=== PATIENT | female | born 1995 | race Caucasian/White ===

== ENCOUNTER 2022-10-08 08:00 | Outpatient (CLI) | payer MEDICAID ==
[2022-10-08 12:41] LABS: BASOPHILS # (AUTO) 0.1 10^3/uL (0.0-0.1); BASOPHILS % (AUTO) 0.6 %; EOSINOPHILS # (AUTO) 0.2 10^3/uL (0.0-0.7); EOSINOPHILS % (AUTO) 2.7 %; HCT - HEMATOCRIT 35.5 % (37.0-47.0); HGB - HEMOGLOBIN 11.8 g/dL (12.0-16.0); LYMPHOCYTES # (AUTO) 1.4 10^3/uL (1.5-3.5); LYMPHOCYTES % (AUTO) 15.8 %; MEAN CORPUSCULAR HEMOGLOBIN 29.5 pg (27.0-31.0); MEAN CORPUSCULAR HGB CONC 33.2 g/dL (32.0-36.0); MEAN CORPUSCULAR VOLUME 88.8 fL (81.0-99.0); MONOCYTES # (AUTO) 0.5 10^3/uL (0.0-1.0); MONOCYTES % (AUTO) 5.8 %; NEUTROPHILS # (AUTO) 6.4 10^3/uL (1.5-6.6); NEUTROPHILS % (AUTO) 74.7 %; PLT - PLATELET COUNT 299 10^3/uL (130-450); RED CELL DISTRIBUTION WIDTH 11.8 % (12.0-15.0); WHITE BLOOD COUNT 8.6 x10^3/uL (4.8-10.8)
[2022-10-09 06:09] LABS: HBsAG SCREEN Negative (Negative); HCV AB 0.1 s/co ratio (0.0-0.9)
[2022-10-09 08:08] LABS: RPR Non Reactive (Non Reactive); VARICELLA-ZOSTER AB IGG 1199 index (Immune >165)
[2022-10-11 01:06] LABS: HIV SCREEN 4TH GENERATION Non Reactive (Non Reactive)
== END 2022-10-08 23:59 | disposition home or self-care (01) ==
LOC: LAB.N 08:00
PROVIDERS: ATTEND Nurse Practitioner Obstetrics & Gynecology
DX: Z36.89 Encounter for other specified antenatal screening (principal)
CPT/HCPCS: 36415; 81220; 81329; 85025; 86592; 86762; 86787; 86803; 86850; 86900; 86901; 87340; 87389

== ENCOUNTER 2022-12-13 15:09 | Outpatient (CLI) | payer OTHER ==
--- NOTE | 2022-12-14 09:12 | Ultrasound Report ---
PROCEDURE: OB Detailed Eval INDICATIONS: SUPERVISION OF OUTSIDE/PRIOR DATING DATA: Last menstrual period (LMP): 07/22/2022. LMP-based estimated date of delivery (KEISHA): 04/28/2023. First dating scan (date and location): 10/05/2022. Estimated date of delivery (KEISHA) from first dating scan: 04/27/2023. The below data below was generated using the ultrasound KEISHA of 04/27/2023 TECHNIQUE: Real-time scanning was performed of the fetus, with image documentation and biometric measurements. Endovaginal scanning: Not performed COMPARISON: None. FINDINGS: General: A single living intrauterine gestation is present. Presentation: Vertex Placenta: Placental position is posterior, without previa. Amniotic fluid index: 11.8 cm, largest pocket is 3.3 cm, normal for gestational age. heart rate: 145 beats per minute. Maternal cervical canal: Closed and 5.9 cm long; normal length is 2.5 cm or more. biometrics: Biparietal diameter: 4.6 cm, 19 weeks, 5 days Head circumference: 17.2 cm, 19 weeks, 5 days Abdominal circumference: 15.2 cm, 20 weeks, 3 days Femur length: 3.3 cm, 20 weeks, 2 days Estimated gestational age from initial scan: 20 weeks, 5 days. Composite gestational age from present scan: 20 weeks, 0 days Estimated weight and percentile: 342 g, 23rd percentile Measurement variability in biometric dating: +/- 10 days from 12-20 weeks gestation, +/- 2 weeks from 20-30 weeks gestation, +/- 3 weeks at 30 weeks gestation or later. Anatomic survey: Neuro: Ventricles are normal at less than 10 mm. Cisterna magna is normal at 3-11 mm. Cerebellum i s normal in size and morphology. Nuchal skin fold: Normal at less than 6 mm between 14 and 20 weeks gestational age. Face: Nose and lips, facial profile are normal. Spine: No evidence for spina bifida. Heart: 4-chambered heart is present, with normal ventricular outflow tracts. Diaphragm: Diaphragm is intact. Stomach: Left-sided stomach is present. Kidneys: No hydronephrosis. Normal is less than 5 mm in 2nd trimester, less than 7 mm in 3rd trimester. Cord: 3 vessel cord has orthotopic insertion. Bladder: Normal in size. Extremities: All 4 extremities are visualized. IMPRESSION: 1. Single living intrauterine with estimated weight at the 23rd percentile. 2. Symmetric growth and normal anatomy. Reviewed by: Misti Best MD on 12/14/2022 9:11 AM PST Approved by: Misti Best MD on 12/14/2022 9:11 AM [facility] Station ID: [id number]
== END 2022-12-13 15:10 | disposition home or self-care (01) ==
LOC: DI 15:09
PROVIDERS: ATTEND Nurse Practitioner Obstetrics & Gynecology
DX: Z34.92 Encounter for supervision of normal pregnancy, unspecified, second trimester (principal); Z3A.20 20 weeks gestation of pregnancy; Z36.89 Encounter for other specified antenatal screening

== ENCOUNTER 2023-01-28 12:39 | Outpatient (CLI) | payer OTHER ==
[2023-01-28 17:50] LABS: HCT - HEMATOCRIT 35.9 % (37.0-47.0); HGB - HEMOGLOBIN 11.7 g/dL (12.0-16.0); MEAN CORPUSCULAR HEMOGLOBIN 28.9 pg (27.0-31.0); MEAN CORPUSCULAR HGB CONC 32.6 g/dL (32.0-36.0); MEAN CORPUSCULAR VOLUME 88.6 fL (81.0-99.0); RED BLOOD COUNT 4.05 10^6/uL (4.20-5.40); RED CELL DISTRIBUTION WIDTH 12.9 % (12.0-15.0); WHITE BLOOD COUNT 12.2 x10^3/uL (4.8-10.8)
== END 2023-01-28 12:40 | disposition home or self-care (01) ==
LOC: LAB.N 12:39
PROVIDERS: ATTEND Nurse Practitioner Obstetrics & Gynecology
DX: Z36.9 Encounter for antenatal screening, unspecified (principal)
CPT/HCPCS: 36415; 82950; 85027

== ENCOUNTER 2023-02-02 08:22 | Outpatient (CLI) | payer OTHER ==
[2023-02-02 09:29] LABS: GTT GLUCOSE,FASTING 83 mg/dL (70-100)
== END 2023-02-02 08:23 | disposition home or self-care (01) ==
LOC: LAB 08:22
PROVIDERS: ATTEND Nurse Practitioner Obstetrics & Gynecology
DX: O99.810 Abnormal glucose complicating pregnancy (principal)
CPT/HCPCS: 36415; 82951; 82952

== ENCOUNTER 2023-04-15 15:37 | Outpatient (CLI) | payer OTHER ==
--- NOTE | 2023-04-15 16:52 | Ultrasound Report ---
PROCEDURE: OB F/U or Repeat INDICATIONS: UTERINE SIZE DATE DISCREPENCY OUTSIDE/PRIOR DATING DATA: Last menstrual period (LMP): 07/22/2022. LMP-based estimated date of delivery (KEISHA): 04/28/2023. First dating scan (date and location): 10/05/2022. Estimated date of delivery (KEISHA) from first dating scan: 04/27/2023. TECHNIQUE: Real-time scanning was performed of the fetus, with image documentation and biometric measurements. Endovaginal scanning: Not performed COMPARISON: 12/13/2022 FINDINGS: General: A single living intrauterine gestation is present. Presentation: Vertex Placenta: Placental position is posterior, without previa. Amniotic fluid index: 19.1 cm, normal for gestational age. heart rate: 130 beats per minute. Maternal cervical canal: 3.6 cm long; normal length is 2.5 cm or more. biometrics: Biparietal diameter: 8.39 cm 33 weeks 5 days Head circumference: 29.8 cm 33 weeks 0 days Abdominal circumference: 30.6 cm 34 weeks 4 days Femur length: 6.67 m 34 weeks 1 day Estimated gestational age from initial scan: 38 weeks 2 days. Composite gestational age from present scan: 33 weeks 6 days Estimated weight and percentile: 2367 g, 1.3 percentile Measurement variability in biometric dating: +/- 10 days from 12-20 weeks gestation, +/- 2 weeks from 20-30 weeks gestation, +/- 3 weeks at 30 weeks gestation or more. Other: Umbilical artery S:D ratios 2.59-3.19, below the 95th percentile for gestational age. Antegra de diastolic flow maintained. IMPRESSION: 1. Single living intrauterine in vertex presentation. 2. Estimated weight at the 1.3 percentile, consistent with severe growth restriction. Results conveyed to Jessica Jackson by the heel slugger at 1600 hours. Reviewed by: Saul Nowak MD on 04/15/2023 4:51 PM PDT Approved by: Saul Nowak MD on 04/15/2023 4:51 PM PDT Station ID: [id number]
== END 2023-04-15 15:38 | disposition home or self-care (01) ==
LOC: DI 15:37
PROVIDERS: ATTEND Nurse Practitioner Obstetrics & Gynecology
DX: O26.843 Uterine size-date discrepancy, third trimester (principal); Z3A.33 33 weeks gestation of pregnancy

== ENCOUNTER 2023-04-16 10:05 | Inpatient (IN) | payer OTHER ==
[2023-04-16] MEDS ORDERED: OXYTOCIN 10 UNIT/ML VIAL IM PRN (10:15)
[2023-04-16] MEDS ORDERED: OXYTOCIN/SODIUM CHLORIDE 500 ML IV PRN (10:15)
[2023-04-16] MEDS ORDERED: miSOPROStoL 200 MCG TABLET BC PRN (10:15)
[2023-04-16] MEDS ORDERED: ONDANSETRON 4 MG/2 ML VIAL IVP PRN (10:15)
[2023-04-16] MEDS ORDERED: SODIUM CHLORIDE FLUSH 0.9% 10 ML SYRINGE IVP PRN (10:15)
[2023-04-16] MEDS ORDERED: lidocaine 1% 20 ML MDV ID PRN (10:15)
[2023-04-16] MEDS ORDERED: CARBOPROST TROMETHAMINE 250 MCG/ML AMP IM PRN (10:15)
[2023-04-16] MEDS ORDERED: TRANEXAMIC ACID IN NACL 1,000 MG/100 ML BAG IV PRN (10:15)
[2023-04-16] MEDS ORDERED: METHYLERGONOVINE 0.2 MG/ML VIAL IM PRN (10:15)
--- NOTE | 2023-04-16 10:38 | HISTORY & PHYSICAL EXAMINATION ---
Admit History - Visit Reason Visit Reason: Other - : 1 Parity: 0 Premature: 0 Ectopic: 0 : 0 Care: positive: [facility] Risk/History: positive: None Complications This : positive: Other Smoking Status: Never smoker - Mother's Labs Mother's Blood Type: positive: A Mother's RH: positive: Positive GBS: positive: Group B Strep Positive Rubella Status: positive: Immune Meds/Allgy - Allergies Allergies/Adverse Reactions: Allergies Allergy/AdvReac Type Severity Reaction Status Date / Time No Known Drug Allergies Allergy Verified 04/16/23 10:54 Review of Systems - Constitutional Constitutional: denies: Fatigue, Fever, Chills, Malaise - Eyes Eyes: denies: Blurred vision, Spots in vision, Dipolpia - Cardiovascular Cariovascular: denies: Irregular heart rate, Palpitations, Chest pain, Edema - Respiratory Respiratory: denies: Cough, Wheezing, SOB at rest - Gastrointestinal Gastrointestinal: denies: Abdominal pain, Constipation, Diarrhea, Change in bowel habits, Nausea, Vomiting - Genitourinary Genitourinary: denies: Dysuria - Integumentary Integumentary: denies: Rash, Pruritis - Neurological Neurological: denies: Headache - Psychiatric Psychiatric: denies: Depression, Anxiety Physical - Abdominal Exam Contraction Frequency (min/apart): none Uterine Resting Tone: positive: Soft - Monitoring Heart Rate Baseline: 130s Strip Review: positive: Category I - Presentation Presentation: positive: Vertex - Vaginal Exam Membranes: positive: Membranes intact Dilation (in cm): fingertip Effacement (%): 25 Station: positive: -3 Cervical Position: positive: Posterior - Speculum Exam Speculum Exam Performed: positive: No Findings: positive: Other Plan for Labor - Plan For Labor I expect patient to be DC'd or transferred within 96 hours.: Yes Plan for Labor: HPI: She is a patient of [facility] who presents on 04/16/2023 for medical induction of labor secondary to newly diagnosed IUGR. Upon arrival she was noted to be fingertip/25/-3, posterior and vertex with intact membranes. She denies vaginal bleeding, leakage of fluid or contractions and she reports +FM. She has been a patient of [facility] for the duration of her which has remained uncomplicated with the exception of newly diagnosed IUGR her growth ultrasound which was indicated for uterine size less than dates at her routine visit. EFW was constitutionally small measuring 1.3%tile with normal umbilical cord dopplers and normal DEENA. Pt is 5'1 with a pre- weight of 125lbs and her Renard is 5'4 of note. In addition, she had an elevated 1 hour GCT however her 3 hour glucose was WNL. She is noted to be GBS positive and will be treated prophylactically per protocol with Ampicillin. She will be admitted to [facility] for pre-induction cervical ripening with misoprostol. Dating criteria: LMP: 07/22/2023 Initial U/S @ 6.5wks c/w LMP dating Serial exams: agree cocktail server Hx: Term NSVB x 0. SAB x0. Last pap 11/27/2021 NEG, High risk HPV positive, HPV 16/18 negative Medical Hx: mild asthma, irritable bowel syndrome Surgical Hx: Appendectomy at age 8; wisdom teeth removal Family Hx: type 1 diabetes - sister; type 2 diabetes - father, PGF; thyroid disorder - mother; depression - maternal aunts; autoimmune hepatitis - mother; lymphoma-PGF Meds: PNV, PO iron supplement; omeprazole PRN, albuterol PRN Allergies: topical petroleum jelly - rash; dairy intolerance Social: , lives with Renard. Works at [employer]. Partner is [id number] and works at the base in [place]. No tobacco, ETOH or recreational drug use. Caffeine intake -none. course: A positive, antibody negative Rubella immune Initial U/S @ 6.5wks c/w LMP dating Genetic screening - negative; CF carrier negative; SMA negative COVID vaccine & booster x 4 Influenza vaccine received Tdap vaccine received 3rd trimester FAS WNL. Posterior placenta, no previa. 3VC. Size c/w dating (EFW 23%tile). DEENA WNL. 1 hour Glucose 147 - elevated 3 hour glucose WNL (83, 95, 123, 132) GBS POSITIVE Growth U/S @ 38wks 1.3%tile EFW. DEENA 19 cm(WNL); S:D ratios WNL Physical exam: Normocephalic, atraumatic Heart RRR w/o M/G/R Lungs CTAB Abdomen gravid, soft, nontender EFW 2400g FHR baseline 120s, moderate variability, + accels, no decels No contractions appreciated via tocometry SVE fingertip/25/-3, posterior. Vertex. Intact membranes. Bilateral LE's no edema Mood is good Assessment: 27yo @ 38.2wks gestation by LMP c/w 6.5wk U/S IUGR GBS positive FHR Category I Plan: Admit to [facility] for preinduction cervical ripening with 50mcg BC misoprostol q 4 hrs. Continuous monitoring. Initiate Ampicillin for GBS prophylaxis per protocol with onset of labor or SROM/AROM. Encouraged ambulation and position changes. Jacuzzi PRN. Nitrous oxide PRN. Epidural per maternal request. Anticipate .
[2023-04-16 11:16] LABS: BASOPHILS % (AUTO) 0.4 %; EOSINOPHILS # (AUTO) 0.1 10^3/uL (0.0-0.7); EOSINOPHILS % (AUTO) 0.5 %; HGB - HEMOGLOBIN 13.3 g/dL (12.0-16.0); LYMPHOCYTES # (AUTO) 1.4 10^3/uL (1.5-3.5); LYMPHOCYTES % (AUTO) 13.1 %; MEAN CORPUSCULAR HGB CONC 34.1 g/dL (32.0-36.0); MEAN CORPUSCULAR VOLUME 85.2 fL (81.0-99.0); MEAN PLATELET VOLUME 11.2 fL (7.9-10.8); MONOCYTES # (AUTO) 0.6 10^3/uL (0.0-1.0); MONOCYTES % (AUTO) 5.2 %; NEUTROPHILS # (AUTO) 8.5 10^3/uL (1.5-6.6); NEUTROPHILS % (AUTO) 80.1 %; PLT - PLATELET COUNT 242 10^3/uL (130-450); RED BLOOD COUNT 4.58 10^6/uL (4.20-5.40); RED CELL DISTRIBUTION WIDTH 13.5 % (12.0-15.0); WHITE BLOOD COUNT 10.6 x10^3/uL (4.8-10.8)
[2023-04-16] MEDS: miSOPROStoL 100 MCG TABLET BC SCH ×3 (11:19→20:19)
[2023-04-16] MEDS: SODIUM CHLORIDE FLUSH 0.9% 10 ML SYRINGE IVP SCH (15:44)
[2023-04-16] MEDS: metroNIDAZOLE 250 MG TABLET PO SCH (17:03)
[2023-04-16] MEDS: LACTATED RINGERS 1,000 ML IV SCH (23:01)
[2023-04-17] MEDS: LACTATED RINGERS 1,000 ML IV SCH ×2 (01:51→13:17)
[2023-04-17] MEDS ORDERED: AMPICILLIN 2 GM in SODIUM CHLORIDE 0.9% MINIBAG 100 ML IV SCH (06:00)
[2023-04-17] MEDS ORDERED: AMPICILLIN 1 GM in SODIUM CHLORIDE 0.9% MINIBAG 100 ML IV SCH (06:00)
[2023-04-17] MEDS: miSOPROStoL 100 MCG TABLET BC SCH (06:00)
[2023-04-17] MEDS: SODIUM CHLORIDE FLUSH 0.9% 10 ML SYRINGE IVP SCH (06:09)
[2023-04-17] MEDS ORDERED: ROPIVACAINE 0.2% 200 MG/100 ML BAG EP ONE (07:21)
[2023-04-17] MEDS ORDERED: ROPIVACAINE 0.2% 200 MG/100 ML BAG EP PRN (07:51)
[2023-04-17] MEDS ORDERED: NALOXONE 0.4 MG/ML VIAL IVP PRN ×4 (07:51→21:03)
[2023-04-17] MEDS ORDERED: ePHEDrine 50 MG/ML VIAL IVP PRN (07:51)
--- NOTE | 2023-04-17 07:51 | ANESTHESIA ---
Pre-Anesthesia VS, & Labs - Diagnosis induction of labor/ active labor - Procedure vaginal delivery Vital Signs: Temp Pulse Resp BP Pulse Ox O2 Flow Rate 36.8 C 92 16 122/86 H 04/16/23 11:48 04/16/23 11:48 04/16/23 11:48 04/16/23 11:48 Height: 5 ft 1 in Weight (kg): 63.957 kg Body Mass Index: 26.6 BMI Classification: Overweight - NPO Last Fluid Intake: clear liquids - Is Patient ?: Yes - Lab Results Current Lab Results: Laboratory Tests 04/16/23 11:46: Blood Type A POSITIVE, Antibody Screen NEGATIVE 04/16/23 11:00: WBC 10.6, RBC 4.58, Hgb 13.3, Hct 39.0, MCV 85.2, MCH 29.0, MCHC 34.1, RDW 13.5, Plt Count 242, MPV 11.2 H, Neut # (Auto) 8.5 H, Lymph # (Auto) 1.4 L, [place] # (Auto) 0.6, Eos # (Auto) 0.1, Baso # (Auto) 0.0, Absolute Nucleated RBC 0.00, Nucleated RBC % 0.0 Lab results reviewed: Yes Fish Bones: 04/16/23 11:00 Home Medications and Allergies Active Medications Carboprost Tromethamine (Carboprost Tromethamine 250 Mcg/Ml Amp) 250 mcg IM Q15M PRN PRN Reason: Step 4: Hemorrhage protocol Stop: 04/21/23 10:16 Oxytocin/Sodium Chloride (Pitocin/Sodium Chloride) 500 mls @ 999 mls/hr IV PRN PRN; Protocol PRN Reason: POST- HEMORR PREVENTION Stop: 04/21/23 10:16 Tranexamic Acid (Tranexamic 1,000 Mg/100ml-Nacl) 1,000 mg in 100 mls @ 600 mls/hr IV .ONCE PRN PRN Reason: EBL >1200mL and within 3hr Stop: 04/21/23 10:16 Lactated Ringer's (Lr) 1,000 mls @ 100 mls/hr IV .Q10H MARY Last Admin: 04/17/23 01:51 Dose: 100 mls/hr Ampicillin Sodium 2 gm/ Sodium (Chloride) 100 mls @ 100 mls/hr IV ONCE MARY Stop: 04/18/23 05:59 Last Admin: 04/17/23 06:15 Dose: 100 mls/hr Ampicillin Sodium 1 gm/ Sodium (Chloride) 100 mls @ 200 mls/hr IV Q4H [facility] Lidocaine HCl (Lidocaine 1% 20 Ml Mdv) 20 ml ID .ONCE PRN PRN Reason: PERINEAL REPAIR Stop: 04/21/23 10:16 Methylergonovine Maleate (Methylergonovine 0.2 Mg/Ml Vial) 0.2 mg IM .ONCE PRN PRN Reason: Step 2: Hemorrhage protocol Stop: 04/21/23 10:16 Metronidazole (Metronidazole 250 Mg Tablet) 500 mg PO BIDWM [facility] Last Admin: 04/16/23 17:03 Dose: 500 mg Misoprostol (Misoprostol 200 Mcg Tablet) 800 mcg BC .ONCE PRN PRN Reason: Step 3: Hemorrhage protocol Stop: 04/21/23 10:16 Ondansetron HCl (Ondansetron 4 Mg/2 Ml Vial) 4 mg IVP Q4HR PRN PRN Reason: Nausea / Vomiting Oxytocin (Oxytocin 10 Unit/Ml Vial) 10 unit IM .ONCE PRN PRN Reason: Step one: If no IV access Stop: 04/21/23 10:16 Sodium Chloride (Sodium Chloride Flush 0.9% 10 Ml Syringe) 10 ml IVP 0100,0900,1700 [facility] Last Admin: 04/17/23 06:09 Dose: Not Given Sodium Chloride (Sodium Chloride Flush 0.9% 10 Ml Syringe) 10 ml IVP PRN PRN PRN Reason: NEEDED PER PROVIDER ORDERS Allergies/Adverse Reactions: Allergies Allergy/AdvReac Type Severity Reaction Status Date / Time No Known Drug Allergies Allergy Verified 04/16/23 10:54 Anes History & Medical History - Anesthetic History Anesthesia Complications: reports: No previous complications - Medical History Cardiovascular: reports: None Pulmonary: reports: None Gastrointestinal: reports: None Urinary: reports: None Neuro: reports: None Musculoskeletal: reports: None Endocrine/Autoimmune: reports: None Blood Disorders: reports: None Skin: reports: None Smoking Status: Never smoker Psychosocial: reports: No issues indicated History of Cancer?: No - Surgical History General: reports: Appendectomy - Obstetrical History : 1 Parity: 0 Events: reports: None Complications: reports: Other (IUGR) Problems: IUGR Exam General: Alert, Oriented x3, Cooperative, No acute distress Dental: WNL Mouth Openin Fingerbreadth Neck Mobility: Normal Mallampati classification: II Thyromental Distance: 4-6 cm Mental/Cognitive Status: Alert/Oriented X3, Normal for patient Plan Anesthesia Type: Epidural Consent for Procedure(s) Verified and Reviewed: Yes Code Status: Attempt Resuscitation ASA classification: 2-Mild systemic disease Is this case an emergency?: No
[2023-04-17] MEDS: metroNIDAZOLE 250 MG TABLET PO SCH ×3 (08:19→22:17)
[2023-04-17] MEDS ORDERED: OXYTOCIN/SODIUM CHLORIDE 500 ML IV SCH (10:00)
--- NOTE | 2023-04-17 10:11 | PROVIDER PROGRESS NOTE ---
Labor Progress Note - Uterine Monitoring Uterine Monitoring Mode: positive: External toco Contraction Frequency (min/apart): 3-5 Contraction Intensity: positive: Moderate Uterine Resting Tone: positive: Soft - Monitoring Monitor Mode: positive: External ultrasound Heart Rate Baseline: 130 Heart Rate Variability: positive: Moderate (6-25 bmp) Accelerations: positive: Present, 15x15 Decelerations: positive: None Strip Review: positive: Category I - Vaginal Exam Dilation (in cm): 2-3 Effacement (%): 60 Station: -2 Cervical Position: Midposition - Labor Progress Note Labor Progress Note/Additional Text: S: Comfortable with her epidural. She was able to get a little rest last night after her epidural was placed. She continues to leak clear fluid. Her mood is good and both her mom and her are supportive at the bedside. O: FHR baseline 130s, moderate variability, + accels, no decels at present. She was previously having intermittent late decelerations with moderate variability maintained and overall FHR tracing looks reassuring. Contractions palpate mild every 2-5 minutes with soft resting tone SVE 2-3/60/-2, midposition, medium consistency. Vertex. A: 27yo @ 38.3wks gestation by LMP c/w 6.5wk U/S IUGR GBS positive FHR Category I P: Initiate pitocin for induction of labor with titration per protocol. Continuous monitoring. Continue ampicillin for GBS prophylaxis per protocol. Encouraged position changes in bed on peanut ball. Anticipate .
[2023-04-17] MEDS: AMPICILLIN 1 GM in SODIUM CHLORIDE 0.9% MINIBAG 100 ML IV SCH ×3 (10:33→18:13)
[2023-04-17] MEDS ORDERED: TERBUTALINE 1 MG/ML VIAL SUBQ ONE (16:35)
--- NOTE | 2023-04-17 16:43 | PROVIDER PROGRESS NOTE ---
Labor Progress Note - Uterine Monitoring Uterine Monitoring Mode: positive: IUPC Contraction Frequency (min/apart): 2-4 Contraction Intensity: positive: Moderate Uterine Resting Tone: positive: Soft - Monitoring Monitor Mode: positive: External ultrasound Heart Rate Baseline: 150 Heart Rate Variability: positive: Moderate (6-25 bmp) Accelerations: positive: Absent Decelerations: positive: Late, Intermittent (<50% x20 min) Strip Review: positive: Category II - Vaginal Exam Dilation (in cm): 4 Effacement (%): 70 Station: -2 Cervical Position: Midposition - Labor Progress Note Labor Progress Note/Additional Text: S: Feeling comfortable with her epidural in place. She has been able to get several naps in today and she feels She and her partner are both feeling comfortable with the plan of continued care and are aware of the potential for a delivery secondary to late decelerations. O: Pitocin currently off following recurrent, deep, late decelerations. Previously at 8mU/mL maximum infusion rate SVE 4/70/-2, midposition, medium consistency Contractions palpate moderate every 2-4 minutes with soft resting tone S/p 3 doses of ampicillin for gbs prophylaxis IUPC inserted A: 27yo @ 38.2wks gestation by LMP c/w 6.5wk U/S IUGR FHR Category II GBS positive P: Leave pitocin off x 30 minutes and then restart. Discussed with patient and partner at the bedside that if recurrent late decelerations develop that my recommendation would be to proceed with a delivery with the final decision being made by the x ray electronics wireman physician. They both verbalized understanding and are in agreement with the above plan. Continue ampicillin for GBS prophylaxis per protocol. Continuous monitoring. Continue rotation in bed on peanut ball. call center support consultant physician notified and will present to the unit secondary to concern for development of non-reassuring heart tones with re-initiation of pitocin.
[2023-04-17] MEDS ORDERED: ceFAZolin 2 GM in SODIUM CHLORIDE 0.9% MINIBAG 100 ML IV ONE (17:56)
--- NOTE | 2023-04-17 17:56 | CONSULTATION NOTE ---
Surgery Consult - Admit Date Hospital Admission Date: 04/16/23 - Consult Date Consult Date: 04/17/23 Requesting Provider: Jessica Jackson CNM - Chief Complaint Chief Complaint: non-reassuring heart tracing - Home Meds/Allergies Allergies/Adverse Reactions: Allergies Allergy/AdvReac Type Severity Reaction Status Date / Time No Known Drug Allergies Allergy Verified 04/16/23 10:54 - Vital Signs Vital Signs: Last Vital Signs Temp 98.2 F 04/16/23 11:48 Pulse 92 04/16/23 11:48 Resp 16 04/16/23 11:48 BP 122/86 H 04/16/23 11:48 Pulse Ox O2 Flow Rate Intake & Output: Intake & Output 04/14/23 04/15/23 04/16/23 04/17/23 23:59 23:59 23:59 23:59 Intake Total 1448.500 Output Total 1400 Balance 48.500 - Lab Results Result Diagrams: 04/16/23 11:00 - Consultation Note Consultation Note: 27 at 38 + 2 by LMP confirmed by first tri u/s admitted 16 April for induction of labor for IUGR. Patient under misoprostol cervical ripening x 24 hours, SROM 0530 today, clear fluid, who has made minimal cervical dilation with intermittent episodes of recurrent late decelerations. With non-reassuring status remote from delivery I was consulted to assess the patient for delivery. Verbal and written informated consent obtained. Risk, pros, cons and alteratives reviewed. Patient and agree and desire to proceed with primary delivery as recommended.
--- NOTE | 2023-04-17 18:02 | OPERATIVE REPORT ---
Operative Report - General Admit Date: 04/16/23 Planned Procedure: Primary low transverse delivery Pre-Op Diagnosis: intolerance to labor remote from delivery Procedure Performed: Primary low transverse delivery Post Op Diagnosis: at 38+2 weeks gestation; intrauterine growth restriction - Procedure Note Primary Surgeon: Johanny Moreland MD Secondary Surgeon: Jessica Jackson CNM Anesthesia Provider: See nursing record Anesthesia Technique: Epidural Pathology: Placenta delivered intact Estimated Blood Loss (mL): 800 Urine Output (mL): 200 ([place]) Indications: Due to her intolerance to labor remote from delivery Findings: Vertex presentation; well-developed lower uterine segment; normal-appearing tubes and ovaries bilaterally Complications: None - Other Other Information/Narrative: Procedure in detail: Patient was taken to the operating room where an adequate epidural was already in place. She was sterilely prepped and draped in the supine position with a leftward tilt. A Pfannenstiel incision was made and carried down to the underlying layer of fascia. The fascia was divided and dissected sharply and laterally. Electrocautery was used for hemostasis. The rectus muscles were carefully divided and the peritoneum was entered sharply. The lower uterine segment was assessed and well developed. A low transverse incision was created and extended laterally with bandage scissors. The fetus was delivered in a vertex presentation. The head was delivered without difficulty the cord was clamped and the infant was handed off the field with the awaiting chief nurse executive was present. The uterus was then exteriorized and cleansed with a dry lap sponge. The uterine incision was then repaired using 0 Vicryl in a running locking fashion. A second layer imbrication was created with the 0 Vicryl as well. Good homeostasis was noted. The bladder was intact. The uterus was placed back into the abdomen after copious irrigation of the abdomen was performed with warm saline fluid. The uterine incision was reinspected and noted to be hemostatic. The abdominal incision was then repaired in layers in the usual fashion. 0 Vicryl was used for the fascia. Interrupted 2-0 Vicryl was used to reapproximate the the fatty layer and Briana's fascia. The skin was then re-approximated with 3-0 Monocryl. Steri- Strips were applied and a pressure dressing placed. The Mayorga was noted to be draining clear yellow urine and a crede was performed expressing minimal blood. Instrument sponge and needle count was correct x2 and the patient was taken to the recovery room in a stable condition.
--- NOTE | 2023-04-17 18:02 | DELIVERY NOTE ---
Delivery Note - Labor Labor: positive: Other - Delivery Method Delivery Method: positive: Primary - Cervical Ripening Method Cervical Ripening Method: positive: Misoprostil, Oxytocin - Presentation Presentation: positive: Vertex - Anesthetic Anesthetic: positive: Other (see anesthetic record) - Amniotic Fluid Description Amniotic Fluid Description: positive: Other ( terminal meconium) - Suture Suture Type: positive: Vicryl - Delivery Outcome Delivery Outcome: positive: Livebirth - : positive: Warmer used [place] sex: positive: Female - Estimated Blood Loss Estimated Blood Loss (in cc): 800 - Delivery Comments (Free Text/Narrative) Delivery Comments (Free Text/Narrative): uncomplicated primary low transverse delivery
[2023-04-17] MEDS ORDERED: METHYLERGONOVINE 0.2 MG/ML VIAL ONE (18:09)
[2023-04-17] MEDS ORDERED: CARBOPROST TROMETHAMINE 250 MCG/ML AMP IM ONE (18:09)
[2023-04-17] MEDS ORDERED: miSOPROStoL 200 MCG TABLET ONE (18:09)
[2023-04-17] MEDS ORDERED: LIDOCAINE MPF 2%-EPI 1:200000 20 ML VIAL ONE (18:12)
[2023-04-17] MEDS ORDERED: ceFAZolin 2 GM VIAL ONE (18:21)
[2023-04-17] MEDS ORDERED: fentaNYL 100 MCG/2 ML VIAL ONE (19:04)
[2023-04-17] MEDS ORDERED: KETOROLAC 30 MG/ML VIAL ONE (19:29)
[2023-04-17] MEDS ORDERED: LACTATED RINGERS 900 ML IV ONE (19:47)
[2023-04-17] MEDS ORDERED: ONDANSETRON 4 MG/2 ML VIAL IVP PRN ×2 (19:57→20:06)
[2023-04-17] MEDS ORDERED: fentaNYL 100 MCG/2 ML VIAL IVP PRN (19:57)
[2023-04-17] MEDS ORDERED: ATROPINE ABBOJECT 1 MG/10 ML SYRINGE IVP PRN (19:57)
[2023-04-17] MEDS ORDERED: MORPHINE 2 MG/ML CARPUJECT IVP PRN (19:57)
[2023-04-17] MEDS ORDERED: HYDROmorphone 0.5 MG/0.5 ML SYRINGE IVP PRN (19:57)
[2023-04-17] MEDS ORDERED: LACTATED RINGERS 1,000 ML IV SCH (20:00)
[2023-04-17] MEDS ORDERED: diphenhydrAMINE 25 MG CAPSULE PO PRN (20:06)
[2023-04-17] MEDS ORDERED: ONDANSETRON ODT 4 MG TABLET TL PRN (20:06)
[2023-04-17] MEDS ORDERED: CALCIUM CARBONATE CHEW 500 MG TABLET PO PRN (20:06)
[2023-04-17] MEDS ORDERED: OXYTOCIN/SODIUM CHLORIDE 500 ML IV PRN ×2 (20:06→21:03)
[2023-04-17] MEDS ORDERED: METOCLOPRAMIDE 10 MG TABLET PO PRN (20:06)
[2023-04-17] MEDS ORDERED: hydrALAZINE INJ 20 MG/ML VIAL IVP PRN ×4 (20:06→21:03)
[2023-04-17] MEDS ORDERED: LABETALOL 20 MG/4 ML SYRINGE IVP PRN ×6 (20:06→21:03)
[2023-04-17] MEDS ORDERED: NIFEdipine 10 MG CAPSULE PO PRN ×2 (20:06→21:03)
[2023-04-17] MEDS: HYDROmorphone 0.5 MG/0.5 ML SYRINGE IVP ONE ×2 (21:00→21:03)
[2023-04-17] MEDS ORDERED: oxyCODONE 5 MG TABLET PO PRN (21:03)
[2023-04-17] MEDS ORDERED: ACETAMINOPHEN 650 MG SUPP PR PRN (21:19)
[2023-04-17] MEDS: HYDROmorphone 1 MG/ML CARPUJECT IVP PRN (21:29)
[2023-04-17] MEDS ORDERED: ACETAMINOPHEN 500 MG TABLET PO SCH (22:00)
[2023-04-17] MEDS: DOCUSATE SODIUM 100 MG CAPSULE PO SCH (22:39)
[2023-04-18] MEDS ORDERED: KETOROLAC 30 MG/ML VIAL IVP SCH
[2023-04-18] MEDS: ACETAMINOPHEN 500 MG TABLET PO SCH ×4 (00:18→23:51)
[2023-04-18] MEDS: HYDROmorphone 1 MG/ML CARPUJECT IVP PRN (00:18)
[2023-04-18] MEDS: KETOROLAC 30 MG/ML VIAL IVP SCH ×3 (01:50→13:57)
[2023-04-18] MEDS: oxyCODONE 5 MG TABLET PO PRN ×6 (03:35→23:51)
[2023-04-18 06:12] LABS: HCT - HEMATOCRIT 33.2 % (37.0-47.0); HGB - HEMOGLOBIN 11.3 g/dL (12.0-16.0); MEAN CORPUSCULAR HEMOGLOBIN 29.7 pg (27.0-31.0); MEAN CORPUSCULAR VOLUME 87.1 fL (81.0-99.0); MEAN PLATELET VOLUME 10.5 fL (7.9-10.8); RED BLOOD COUNT 3.81 10^6/uL (4.20-5.40); RED CELL DISTRIBUTION WIDTH 13.5 % (12.0-15.0); WHITE BLOOD COUNT 14.2 x10^3/uL (4.8-10.8)
--- NOTE | 2023-04-18 06:25 | PROVIDER PROGRESS NOTE ---
Subjective - Prog Note Date Prog Note Date: 04/17/23 (patient feeling well this am; has ambulated; tolerating po; pain well controlled) Prog Note Time: 06:30 - Subjective Pt reports feeling: Improved Objective - Vital Signs/Intake & Output Vital Signs: Vital Signs x48h Temp Pulse Resp BP Pulse Ox 04/18/23 03:32 98.0 F 74 16 122/83 H 98 04/18/23 02:00 97.9 F 04/18/23 00:35 98.4 F 90 18 134/80 H 99 04/17/23 22:31 97.9 F 70 16 122/81 H 99 Intake & Output: Intake & Output 04/15/23 04/16/23 04/17/23 04/18/23 23:59 23:59 23:59 23:59 Intake Total 2296.417 Output Total 1515 Balance 781.417 - Objective General Appearance: positive: No acute distress Respiratory: positive: No respiratory distress Abdomen: positive: No distention, Other (fundus firm; bandage in place; dry) Extremities: positive: Non-tender - Lab Results Fish Bones: 04/18/23 06:03 Other Labs: Lab Results x24hrs 04/18/23 Range/Units 06:03 WBC 14.2 H (4.8-10.8) x10^3/uL RBC 3.81 L (4.20-5.40) 10^6/uL Hgb 11.3 L (12.0-16.0) g/dL Hct 33.2 L (37.0-47.0) % MCV 87.1 (81.0-99.0) fL MCH 29.7 (27.0-31.0) pg MCHC 34.0 (32.0-36.0) g/dL RDW 13.5 (12.0-15.0) % Plt Count 181 (130-450) 10^3/uL MPV 10.5 (7.9-10.8) fL Assessment/Plan - Problem List (1) delivery delivered Impression: POD #1 (4) Non-reassuring heart rate with late deceleration Impression: Doing well POD #1 primary cd for intolerance to labor last PM Advance care today Routine post c/s care
[2023-04-18] MEDS: DOCUSATE SODIUM 100 MG CAPSULE PO SCH ×2 (08:04→20:00)
[2023-04-18] MEDS: metroNIDAZOLE 250 MG TABLET PO SCH ×2 (08:04→18:14)
[2023-04-18] MEDS: SODIUM CHLORIDE FLUSH 0.9% 10 ML SYRINGE IVP SCH (08:29)
[2023-04-18] MEDS ORDERED: DOCUSATE SODIUM 100 MG CAPSULE PO SCH (09:00)
--- NOTE | 2023-04-18 10:06 | PROVIDER PROGRESS NOTE ---
Subjective - Subjective Subjective: Reviewed with patient my recommendation for proceeding with primary delivery secondary to non-reassuring heart tones isolated with delivery. Care handed to document control supervisor physician. Objective - Vital Signs/Intake & Output Vital Signs: Vital Signs x48h Temp Pulse Resp BP Pulse Ox 04/18/23 08:25 36.7 C 77 18 129/90 H 04/18/23 03:32 36.7 C 74 16 122/83 H 98 Intake & Output: Intake & Output 04/15/23 04/16/23 04/17/23 04/18/23 23:59 23:59 23:59 23:59 Intake Total 2296.417 450 Output Total 1515 330 Balance 781.417 120 - Lab Results Fish Bones: 04/18/23 06:03 Other Labs: Lab Results x24hrs 04/18/23 Range/Units 06:03 WBC 14.2 H (4.8-10.8) x10^3/uL RBC 3.81 L (4.20-5.40) 10^6/uL Hgb 11.3 L (12.0-16.0) g/dL Hct 33.2 L (37.0-47.0) % MCV 87.1 (81.0-99.0) fL MCH 29.7 (27.0-31.0) pg MCHC 34.0 (32.0-36.0) g/dL RDW 13.5 (12.0-15.0) % Plt Count 181 (130-450) 10^3/uL MPV 10.5 (7.9-10.8) fL
[2023-04-18] MEDS: IBUPROFEN 600 MG TABLET PO SCH (20:00)
[2023-04-18] MEDS: SIMETHICONE CHEW 80 MG TABLET PO PRN (23:51)
[2023-04-19] MEDS: oxyCODONE 5 MG TABLET PO PRN ×4 (03:40→21:59)
[2023-04-19] MEDS: IBUPROFEN 600 MG TABLET PO SCH ×3 (03:40→18:35)
[2023-04-19] MEDS: metroNIDAZOLE 250 MG TABLET PO SCH ×2 (09:18→18:35)
[2023-04-19] MEDS: DOCUSATE SODIUM 100 MG CAPSULE PO SCH ×2 (09:19→21:59)
[2023-04-19] MEDS: ACETAMINOPHEN 500 MG TABLET PO SCH ×2 (09:19→18:35)
--- NOTE | 2023-04-19 13:31 | PROVIDER PROGRESS NOTE ---
Subjective - Prog Note Date Prog Note Date: 04/19/23 Prog Note Time: 13:00 - Subjective Pt reports feeling: Improved Subjective: Comfortable, pain controlled with oxycodone prn. Appropriate lochia. Ambulating. Voiding. Passing flatus. Tolerating regular diet. Working on . Mood is ok. Objective - Vital Signs/Intake & Output Vital Signs: Vital Signs x48h Temp Pulse Resp BP 04/19/23 09:45 98.6 F 87 16 137/79 H Intake & Output: Intake & Output 04/16/23 04/17/23 04/18/23 04/19/23 23:59 23:59 23:59 23:59 Intake Total 2296.417 450 Output Total 1515 1330 Balance 781.417 -880 - Objective General Appearance: positive: No acute distress Eyes Bilateral: positive: EOMI Respiratory: positive: No respiratory distress Abdomen: positive: Other (FF, dressing removed and incision c/d/i with steri strips) Skin: positive: Color nml Extremities: positive: Non-tender Neurologic/Psychiatric: positive: Oriented x3 - Lab Results Fish Bones: 04/18/23 06:03 Assessment/Plan - Problem List (1) delivery delivered Impression: 27yo s/p PCD following IOL for IUGR on 04/17/23, POD#2 - Doing well - Continue care - Continue assistance with , continues to require admission - Anticipate discharge tomorrow
--- NOTE | 2023-04-19 17:39 | ANESTHESIA POST OP EVALUATION ---
Anesthesia Post Eval - Post Anesthesia Eval Vitals: Last Vital Signs Temp 37.1 C 04/19/23 13:40 Pulse 87 04/19/23 13:40 Resp 18 04/19/23 13:40 BP 129/82 H 04/19/23 13:40 Pulse Ox 98 04/19/23 04:28 O2 Flow Rate CV Function Including HR & BP: Stable Pain Control: Satisfactory Nausea & Vomiting: Negative Mental Status: Baseline Respiratory Status: Airway Patent Hydration Status: Satisfactory Anesthesia Complications: None
[2023-04-19] MEDS: SIMETHICONE CHEW 80 MG TABLET PO PRN (21:55)
[2023-04-20] MEDS: IBUPROFEN 600 MG TABLET PO SCH ×3 (00:27→18:46)
[2023-04-20] MEDS: ACETAMINOPHEN 500 MG TABLET PO SCH ×2 (02:24→12:38)
[2023-04-20] MEDS: oxyCODONE 5 MG TABLET PO PRN ×4 (02:24→18:46)
[2023-04-20 07:28] VITALS: BP 129/87
[2023-04-20] MEDS ORDERED: LIDOCAINE PATCH 5% TOP PRN (08:44)
--- NOTE | 2023-04-20 09:06 | PROVIDER PROGRESS NOTE ---
Subjective - Prog Note Date Prog Note Date: 04/20/23 Prog Note Time: 09:04 - Subjective Subjective: Patient is POD#3 s/p 1LTCS for NRFHT with complicated by growth restriction. Patient is doing well this morning. Ambulating, tolerating regular diet. Some left sided incisional pain. Spontaneously voiding, passing flatus. Objective - Vital Signs/Intake & Output Reviewed Vital Signs: Yes Vital Signs: Vital Signs x48h Temp Pulse Resp BP 04/20/23 07:25 98.4 F 83 16 129/87 H Intake & Output: Intake & Output 04/17/23 04/18/23 04/19/23 04/20/23 23:59 23:59 23:59 23:59 Intake Total 2296.417 450 Output Total 1515 1330 Balance 781.417 -880 - Objective General Appearance: positive: No acute distress Respiratory: positive: Breath sounds nml Cardiovascular: positive: Regular rate & rhythm Abdomen: positive: Non-tender (appropriately tender, incision closed with sutures and steri strips- clean/dry/intact) Extremities: positive: No pedal edema - Lab Results Fish Bones: 04/18/23 06:03 Assessment/Plan - Problem List (1) delivery delivered Impression: POD#3 discharge to home today reviewed no heavy lifting no driving while taking pain medications
--- NOTE | 2023-04-20 09:23 | DISCHARGE SUMMARY ---
Discharge Summary Discharge Date: 04/20/23 Discharging Provider: Lori Primary Care Provider: Manuel Code Status: Attempt Resuscitation Discharge Disposition: 01 Home, Self Care - DIAGNOSES Admission Diagnoses: growth restriction Discharge Diagnoses with Status of Each Condition: growth restriction - HPI History of Present Illness: Patient presented for induction of labor secondary to growth restriction. Patient had a primary section secondary to non-reassuring heart rate tracing. She had an uncomplicated postoperative course and was discharged to home on POD#3. - ALLERGIES Allergies/Adverse Reactions: Allergies Allergy/AdvReac Type Severity Reaction Status Date / Time No Known Drug Allergies Allergy Verified 04/16/23 10:54 - MEDICATIONS Home Medications: Ambulatory Orders Medication Instructions Recorded Confirmed Docusate Sodium 100Mg Capsule 100 mg PO DAILY PRN #60 cap 04/20/23 [Colace 100Mg Capsule] oxyCODONE [Roxicodone] 2.5 - 5 mg PO Q4H PRN #24 tablet 04/20/23 oxyCODONE [Roxicodone] 5 mg PO Q4HR PRN 10 Days #21 tablet 04/20/23 - PHYSICAL EXAM AT DISCHARGE General Appearance: positive: No acute distress Respiratory: positive: Breath sounds nml Cardiovascular: positive: Regular rate & rhythm Abdomen: positive: Non-tender (appropriately tender, incision is clean/dry/intact) Extremities: positive: No pedal edema Neurologic/Psychiatric: positive: Oriented x3 - LABS Result Diagrams: 04/18/23 06:03
[2023-04-20] MEDS: DOCUSATE SODIUM 100 MG CAPSULE PO SCH (09:25)
--- NOTE | 2023-04-20 19:13 | Labor Flowsheet ---
Labor Flowsheet Datetime Report Generated by CPN: 04/20/2023 19:13 Datetime: 04/19/2023 04:29 Pulse: 90 SpO2 (%): 95 LaborFlag: Labor Datetime: 04/19/2023 04:28 VITAL SIGNS NBP Sys/Julia/Mean (mmHg): 118 : 78 : 87 Datetime: 04/17/2023 18:25 Communication Comments: Patient transported to OR via gurney Datetime: 04/17/2023 18:19 UTERINE ACTIVITY Monitor Mode: Internal Frequency (min): 3-5 Duration (sec): 60-190 Resting Tone IUP (mmHg): 0 Intensity IUP (mmHg): 30-60 [place] Units (mmHg): 155 ASSESSMENT A Monitor Mode: External US FHR Baseline Rate : 155 Variability: Minimal - Undetectable to <=5 bpm Accelerations: None Decelerations: Late Category: Category II Datetime: 04/17/2023 18:14 Anesthesia Comments: A. Juana NITRATOR OPERATOR at bedside Datetime: 04/17/2023 18:13 Antibiotics: Ampicillin IV 1 Gm Datetime: 04/17/2023 18:00 Pattern: Normal: <= 5 Contractions in 10 Minutes Datetime: 04/17/2023 17:53 Patient Care Comments: theraworx wipes to abdomen, groin Datetime: 04/17/2023 17:35 Provider Reviewed Strip: Yes COMMUNICATION Communication: Provider at Bedside Datetime: 04/17/2023 17:30 Actions for Decelerations: Pitocin Off Comments: OR team called in for urgent CS Datetime: 04/17/2023 17:29 MEDICATIONS Pitocin (milliunits): Discontinued Datetime: 04/17/2023 17:15 Pitocin Checklist: At Least 1 Acceleration of 15 bpm x 15 Seconds in 30 Minutes or Adequate Variabi lity; No More than 1 Late Deceleration Occurred in Past 30 Minutes; No More than 2 Variable Decelerat ions > 60 Seconds in Duration and decreasing >60 bpm in 30 minutes; No More than 5 Uterine Contractio ns in 10 Minutes for any 20 Minute Interval; IUPC Resting Tone less than 25 mmHg Datetime: 04/17/2023 17:07 Medication Comments: Per BECCA Nayak. Provider on unit. Datetime: 04/17/2023 17:00 Quality: Strong Resting Tone (Palpate): Relaxed Datetime: 04/17/2023 16:27 Patient Position/Activity: Right Extreme Datetime: 04/17/2023 16:26 PATIENT CARE IV/Blood Work: IV Bolus Started Datetime: 04/17/2023 16:23 Monitor Interventions for UA: IUPC Inserted Contraction Comments: by Jessica TRUJILLO Datetime: 04/17/2023 16:16 VAGINAL EXAM Dilatation (cm): 4.0 Effacement (%): 70 Station: -2 Exam by: Manuel Datetime: 04/17/2023 16:12 Provider Notified (Name): A. Manuel CNM [employer] Datetime: 04/17/2023 15:29 Respirations: 16 Temperature (C): 37.3 Temperature Route: Oral Datetime: 04/17/2023 15:15 Notification Reason: Status Update; Status; Labor Status; Uterine Activity Datetime: 04/17/2023 14:55 Antiemetics/Antacids: Zofran (mg) @ 4 Datetime: 04/17/2023 09:49 Cervix, Consistency: Moderate Cervix, Position: Midposition Datetime: 04/17/2023 09:30 Strip Reviewed by: A. Manuel CNM [employer] Datetime: 04/17/2023 08:24 I/O Interventions: Mayorga Cath Inserted Datetime: 04/17/2023 07:39 Epidural Procedure Other: Pump Started Datetime: 04/17/2023 07:34 Epidural Procedure: Loading Dose Datetime: 04/17/2023 07:18 ANESTHESIA Anesthesia Plans: Epidural Datetime: 04/17/2023 06:42 FHR Baseline Changes: No Baseline Change Datetime: 04/17/2023 06:30 Monitor Interventions for FHR: Ultrasound Adjusted Datetime: 04/17/2023 05:19 Membrane Status: Ruptured Membranes Rupture Method: Spontaneous Amniotic Fluid Color: Clear Amniotic Fluid Amount: Moderate Amniotic Fluid Odor: Normal Nitrazine: Positive Datetime: 04/17/2023 02:55 Vaginal Bleeding: None Datetime: 04/17/2023 02:16 Stage of : Labor Datetime: 04/16/2023 22:55 Membranes Ruptured Date/Time: 04/17/2023 05:19 Datetime: 04/16/2023 20:19 Cervical Ripening Agents: Cytotec @ Datetime: 04/16/2023 13:59 PAIN Pain Scale: 1 Pain Presence: Intermittent Pain Type: Cramping Pain Location: Abdomen Pain Relief Measures: Comfort Measures Pain Coping: Talking Through Contractions Comfort Measures: Breathing/Relaxation
== END 2023-04-20 19:12 | disposition home or self-care (01) | DRG 788 ==
LOC: WFO 10:05 → FBP 10:06 → WFO 12:31 → FBP 04-19 08:47 → OBS 04-19 08:47 → UNDODISIN 04-20 19:12
PROVIDERS: ADMIT Nurse Practitioner Obstetrics & Gynecology; ATTEND Obstetrics & Gynecology Obstetrics
PROC: 3E0DXGC Introduction of Other Therapeutic Substance into Mouth and Pharynx, External Approach (ICD-10-PCS; 2023-04-16)
PROC: 3E033VJ Introduction of Other Hormone into Peripheral Vein, Percutaneous Approach (ICD-10-PCS; 2023-04-17)
PROC: 10H07YZ Insertion of Other Device into Products of Conception, Via Natural or Artificial Opening (ICD-10-PCS; 2023-04-17)
PROC: 10D00Z1 Extraction of Products of Conception, Low, Open Approach (ICD-10-PCS; principal; 2023-04-17 18:30)
DX: O36.5930 Maternal care for other known or suspected poor fetal growth, third trimester, not applicable or unspecified (principal); Z37.0 Single live birth; O76 Abnormality in fetal heart rate and rhythm complicating labor and delivery; O99.824 Streptococcus B carrier state complicating childbirth; Z3A.38 38 weeks gestation of pregnancy; O61.0 Failed medical induction of labor
CPT/HCPCS: 36415; 85025; 85027; 86850; 86900; 86901; A9270; J1170; J7120